=== PATIENT | female | born 1975 | race Caucasian/White ===

== ENCOUNTER → 2017-10-08 | Outpatient (REF) | payer OTHER, BC ==
[2017-10-08 18:26] LABS: HEMATOCRIT 39.6 % (36.0-47.0)
[2017-10-08 20:09] LABS: FERRITIN 158 NG/ML (8-252); IRON (FE) 77 UG/DL (50-170); TOTAL IRON BINDING CAPACITY 248 UG/DL (250-450)
[2017-10-08 20:09] LABS: PHOSPHORUS LEVEL 3.2 MG/DL (2.5-4.9)
[2017-10-08 20:22] LABS: FOLATE 22.6 NG/ML; VITAMIN B12 LEVEL 1057 PG/ML
[2017-10-11 10:46] LABS: PRETREATED FOLATE FOR RBCFOL 14.8 NG/ML; RBC FOLATE 784.8 NG/ML (280-791)
== END ==
LOC: M LAB REF 16:39
DX: E55.9 Vitamin D deficiency, unspecified (principal); Z98.84 Bariatric surgery status; K91.2 Postsurgical malabsorption, not elsewhere classified
CPT/HCPCS: 82746

== ENCOUNTER → 2018-06-26 | Outpatient (REF) | payer OTHER, BC ==
[2018-06-26 13:27] LABS: HEMATOCRIT 40.2 % (36.0-47.0)
[2018-06-26 13:59] LABS: PHOSPHORUS LEVEL 3.2 MG/DL (2.5-4.9)
[2018-06-26 13:59] LABS: FERRITIN 120 NG/ML (8-252); IRON (FE) 87 UG/DL (50-170); PERCENT SATURATION 31.9 % (13.2-45.0); TOTAL IRON BINDING CAPACITY 273 UG/DL (250-450)
[2018-06-26 14:05] LABS: VITAMIN B12 LEVEL 901 PG/ML (247-911)
[2018-06-27 11:32] LABS: PRETREATED FOLATE FOR RBCFOL 9.5 NG/ML; RBC FOLATE 496 NG/ML (280-791)
== END ==
LOC: M LAB REF 12:21
DX: K91.2 Postsurgical malabsorption, not elsewhere classified (principal); Z98.84 Bariatric surgery status

== ENCOUNTER → 2018-09-16 | Outpatient (REF) | payer OTHER, BC ==
[2018-09-17 10:08] LABS: HEPATITIS B SURFACE ANTIGEN NEGATIVE (NEGATIVE); RUBELLA IgG QUALITATIVE IMMUNE (IMMUNE)
[2018-09-17 14:30] LABS: HEPATITIS B SURFACE ANTIBODY NEGATIVE (POSITIVE)
== END ==
LOC: M LAB REF 13:46
PROVIDERS: ATTEND Internal Medicine
DX: Z02.1 Encounter for pre-employment examination (principal)

== ENCOUNTER → 2020-02-17 | Outpatient (REF) | payer OTHER ==
[2020-02-17 17:28] LABS: FERRITIN 94 NG/ML (8-252)
[2020-02-17 17:36] LABS: FOLATE 6.4 NG/ML; VITAMIN B12 LEVEL 308 PG/ML
[2020-02-17 18:16] LABS: HIV 1&2 SCREEN CENTAUR NEGATIVE (NEGATIVE)
== END ==
LOC: M LAB REF 16:00
PROVIDERS: ATTEND Internal Medicine
DX: B00.9 Herpesviral infection, unspecified (principal)

== ENCOUNTER → 2020-08-05 | Outpatient (CLI) | payer OTHER ==
--- NOTE | 2020-08-06 10:35 | REPVR ---
PROCEDURE INFORMATION: Exam: MR Angiogram Head Without Contrast, Arteries Exam date and time: 08/05/2020 12:26 PM Age: 45 years old Clinical indication: Other: Pulsations; Additional info: Pulsatile tinitus lt ear TECHNIQUE: Imaging protocol: MR angiogram head without contrast. Exam focused on the arteries. 3D rendering (Not supervised by radiologist): MIP and/or 3D reconstructed images were created by the technologist. COMPARISON: No relevant prior studies available. FINDINGS: There is normal [id number] flow related signal intensity in the bilateral distal internal carotid arteries through the carotid termini as well as within the distal segments of the vertebral arteries. Normal flow related signal intensity within the basilar artery, anterior, middle and posterior cerebral arteries. No high-grade stenosis, occlusion, aneurysm, or other acute abnormality of the [place] vasculature. No evidence of high flow vascular malformation. IMPRESSION: No high-grade stenosis, occlusion, or aneurysm of the [place] vasculature. Electronically signed by: Prasanth Caraballo On 08/06/2020 10:35:06 AM
== END ==
LOC: M PLARAD 10:26
PROVIDERS: ATTEND Specialist
DX: H93.A2 Pulsatile tinnitus, left ear (principal)

== ENCOUNTER → 2021-03-14 | Outpatient (REF) | payer OTHER ==
[2021-03-14 18:17] LABS: FOLATE 5.3 NG/ML
== END ==
LOC: M LAB REF 17:03
PROVIDERS: ATTEND Internal Medicine
DX: Z98.84 Bariatric surgery status (principal); E03.9 Hypothyroidism, unspecified

== ENCOUNTER → 2022-03-20 | Outpatient (REF) | payer OTHER | LOC: M LAB REF 12:05 | PROVIDERS: ATTEND Internal Medicine | DX: Z98.84 Bariatric surgery status (principal) ==

== ENCOUNTER → 2022-08-05 | Outpatient (CLI) | payer OTHER ==
[~2022-08-05] MED LIST: LEVO100T5 PO; VALA-3 PO
== END ==
LOC: M LABSMTC 09:39
PROVIDERS: ATTEND Anesthesiology
DX: Z01.818 Encounter for other preprocedural examination (principal); Z11.52 Encounter for screening for COVID-19

== ENCOUNTER 2022-08-08 06:18 | Day surgery (SDC) | payer OTHER ==
[~2022-08-08] VITALS: Ht 160 cm; Wt 76.6 kg
[~2022-08-08 06:18] MED LIST changes: +LR 1,000 ML IV SCH; +ceFAZolin SOD 2 GM in IV 1 EA IV ONE
[2022-08-08] MEDS ORDERED: LR 1,000 ML IV SCH ×2 (06:25→09:00)
[2022-08-08] MEDS ORDERED: MIDAZOLAM INJ 2MG/2ML VIAL (J2250 PER 1MG) As Ordered ONE (06:50)
[2022-08-08] MEDS ORDERED: fentaNYL 100 MCG/2 ML INJECTION As Ordered ONE (06:50)
[2022-08-08] MEDS ORDERED: LIDOCAINE 2% 100MG/5ML SDV (FOR ANES.) As Ordered ONE (06:56)
[2022-08-08] MEDS ORDERED: ROCURONIUM BROMIDE 50MG/5ML VIAL As Ordered ONE ×2 (06:56→07:36)
[2022-08-08] MEDS ORDERED: propofoL 200 MG/20 ML VIAL As Ordered ONE (06:56)
[2022-08-08] MEDS ORDERED: SUGAMMADEX SODIUM 500 MG/5 ML VIAL (BRIDION) As Ordered ONE (06:56)
[2022-08-08] MEDS ORDERED: ONDANSETRON 4MG 2ML VIAL As Ordered ONE (06:56)
[2022-08-08] MEDS ORDERED: ACETAMINOPHEN 1000MG 100ML IV BAG As Ordered ONE (06:57)
[2022-08-08] MEDS ORDERED: BUPIVACAINE/EPIN 0.25% 30ML VIAL As Ordered ONE (07:12)
[2022-08-08] MEDS ORDERED: FLUORESCEIN 10% (100MG/ML) 5ML VIAL As Ordered ONE (07:12)
[2022-08-08 07:15] LABS: MEAN CORPUSCULAR HEMOGLOBIN 30.3 pg (27.0-33.0); MEAN CORPUSCULAR HGB CONC 33.3 g/dl (32.0-36.5); MEAN CORPUSCULAR VOLUME 90.9 fl (80.0-96.0); PLATELET COUNT, AUTOMATED 236 10^3/uL (150-450); RED BLOOD COUNT 4.29 10^6/uL (4.00-5.40); WHITE BLOOD COUNT 6.2 10^3/uL (4.0-10.0)
[2022-08-08] MEDS ORDERED: SCOPOLAMINE 1MG TRANSDERMAL PATCH TOP ONE (07:20)
[2022-08-08] MEDS ORDERED: HOME MED LIST COMPLETE! XX SCH (07:25)
[2022-08-08] MEDS ORDERED: SCOPOLAMINE 1MG TRANSDERMAL PATCH As Ordered ONE (07:27)
[2022-08-08 07:36] LABS: BLOOD UREA NITROGEN 9 MG/DL (9-23); CALCIUM LEVEL 9.3 MG/DL (8.5-10.1); CARBON DIOXIDE LEVEL 26 MMOL/L (20-31); CHLORIDE LEVEL 106 MMOL/L (98-107); CREATININE FOR GFR 0.71 MG/DL (0.55-1.30); GLOMERULAR FILTRATION RATE > 60.0 (>58); GLUCOSE, FASTING 96 MG/DL (60-100); POTASSIUM SERUM 3.7 MMOL/L (3.5-5.1); SODIUM LEVEL 140 MMOL/L (136-145)
[2022-08-08] MEDS ORDERED: HYDROmorphone HCL 2MG/ML 1ML VIAL As Ordered ONE (07:43)
[2022-08-08] MEDS ORDERED: fentaNYL 100 MCG/2 ML INJECTION IV PRN (09:00)
[2022-08-08] MEDS ORDERED: HYDROMORPHONE HCL 0.5 MG/ 0.5 ML SYRINGE (J1170 PER 1) IV PRN (09:00)
[2022-08-08] MEDS ORDERED: oxyCODONE 5MG TAB PO PRN (09:00)
[2022-08-08] MEDS ORDERED: ONDANSETRON 4MG 2ML VIAL IV PRN (09:00)
[2022-08-08] MEDS ORDERED: PERC5TAB12 PO (09:17)
[2022-08-08] MEDS ORDERED: PERCOCET 5MG/325MG TAB PO PRN (10:10)
[2022-08-08] MEDS ORDERED: IBUPROFEN 800 MG TAB PO SCH (12:00)
[2022-08-08 12:31] VITALS: BP 133/66
== END 2022-08-08 12:32 | disposition home or self-care (01) ==
LOC: M SDC 06:18
PROVIDERS: ATTEND Obstetrics & Gynecology
DX: N81.2 Incomplete uterovaginal prolapse (principal); R32 Unspecified urinary incontinence; N93.9 Abnormal uterine and vaginal bleeding, unspecified; E03.9 Hypothyroidism, unspecified; Z98.84 Bariatric surgery status; Z79.890 Hormone replacement therapy
CPT/HCPCS: 36415; 57250; 58571; 80048; 81025; 85027; 86850; 86900; 86901; 88302; 88307; J0131; J0690; J1100; J1170; J2250; J2405; J3010; S2900

== ENCOUNTER → 2022-09-07 | Outpatient (REF) | payer OTHER ==
[~2022-09-07] MED LIST changes: -LR 1,000 ML IV SCH; +PERC5TAB12 PO; -ceFAZolin SOD 2 GM in IV 1 EA IV ONE
[2022-09-07 21:28] LABS: APPEARANCE, URINE MANUAL CLEAR (CLEAR); BILIRUBIN, URINE MANUAL NEGATIVE (NEGATIVE); BLOOD URINE MANUAL TRACE (NEGATIVE); COLOR, URINE MANUAL YELLOW (YELLOW); GLUCOSE, URINE (UA) MANUAL NEGATIVE (NEGATIVE); KETONE, URINE MANUAL NEGATIVE (NEGATIVE); LEUKOCYTE ESTERASE, URINE MAN POSITIVE (NEGATIVE); NITRITE, URINE MANUAL NEGATIVE (NEGATIVE); PROTEIN, URINE MANUAL NEGATIVE (NEGATIVE); UROBILINOGEN, URINE MANUAL NORMAL (NORMAL)
[2022-09-07 21:39] LABS: BACTERIA, URINE SMALL AMOUNT; HYALINE CAST, URINE NONE SEEN /lpf (0-1); RBC, URINE 0-1 /hpf (0-3); SQUAMOUS EPITHELIAL CELL URINE SMALL AMOUNT /hpf (SMALL AMT)
== END ==
LOC: M LAB REF 20:58
PROVIDERS: ATTEND Physician Assistant
DX: N39.0 Urinary tract infection, site not specified (principal)

== ENCOUNTER → 2023-03-26 | Outpatient (REF) | payer OTHER ==
[2023-03-26 12:41] LABS: FERRITIN 18.1 NG/ML (7.3-270.7)
[2023-03-26 12:42] LABS: FOLATE 13.7 NG/ML (>5.4)
== END ==
LOC: M LAB REF 11:52
PROVIDERS: ATTEND Internal Medicine
DX: Z98.84 Bariatric surgery status (principal)

== ENCOUNTER → 2023-08-30 | Outpatient (REF) | payer OTHER | LOC: M SFHCWAGY 09:57 | PROVIDERS: ATTEND Nurse Practitioner Family | DX: Z12.72 Encounter for screening for malignant neoplasm of vagina (principal) | CPT/HCPCS: 87624; G0123 ==

== ENCOUNTER → 2024-05-26 | Outpatient (REF) | payer OTHER ==
[2024-05-26 15:11] LABS: FERRITIN 7.9 NG/ML (7.3-270.7)
[2024-05-26 15:31] LABS: FOLATE 19.8 NG/ML (>5.4)
== END ==
LOC: M LAB REF 12:38
PROVIDERS: ATTEND Internal Medicine
DX: K91.2 Postsurgical malabsorption, not elsewhere classified (principal)

== ENCOUNTER → 2024-10-07 | Outpatient (REF) | payer OTHER | LOC: M LAB REF 13:05 | PROVIDERS: ATTEND Internal Medicine | DX: K91.2 Postsurgical malabsorption, not elsewhere classified (principal); Z98.84 Bariatric surgery status ==

== ENCOUNTER → 2025-05-27 | Outpatient (REF) | payer OTHER ==
[2025-05-27 13:44] LABS: VITAMIN B12 LEVEL 601.0 PG/ML (211-911)
== END ==
LOC: M LAB REF 12:35
PROVIDERS: ATTEND Internal Medicine
DX: K91.2 Postsurgical malabsorption, not elsewhere classified (principal)